=== PATIENT | male | born 1990 ===

== ENCOUNTER 2021-01-06 13:11 | Inpatient (IN) ==
[2021-01-06 13:53] LABS: Basophils % 0.6 %; Eosinophils # 0.1 K/mcL (0.0-0.6); Eosinophils % 0.7 %; Hematocrit 43.8 % (37.5-50.1); Hemoglobin 14.7 g/dL (12.9-16.9); Immature Granulocytes % 0.7 % (0-4); Lymphocytes # 1.7 K/mcL (0.6-4.6); Lymphocytes % 24.2 %; Mean Corpuscular HGB Conc 33.6 g/dL (31.6-35.5); Mean Corpuscular Hemoglobin 29.6 pg (28.0-33.3); Mean Corpuscular Volume 88.3 fL (83.0-100.0); Mean Platelet Volume 11.3 fL (9.4-12.4); Monocytes # 0.5 K/mcL (0.0-1.3); Monocytes % 7.9 %; Neutrophils # 4.5 K/mcL (1.6-8.9); Platelet Count 200 K/mcL (140-400); Red Blood Count 4.96 M/mcL (4.19-5.50); Red Cell Distribution Width 13.7 % (11.5-14.5); Segmented Neutrophils % 65.9 %; White Blood Count 6.9 K/mcL (4.3-11.1)
[2021-01-06 14:09] LABS: Acetaminophen < 10 mcg/mL (10-20); BUN/Creatinine Ratio 20 (6-26); Blood Urea Nitrogen 17 mg/dL (6-20); Calcium 8.8 mg/dL (8.6-10.3); Carbon Dioxide 24 mEq/L (23-29); Chloride 109 mEq/L (98-107); Chol/HDL Ratio 3.5 (0-4.9); Cholesterol 149 mg/dL (< 200); Ethanol < 10 mg/dL (Less than 10); Glucose 130 mg/dL (70-105); HDL Cholesterol 43 mg/dL (40-59); LDL Cholesterol,Calculated 91 mg/dL (< 100); Osmolality,Calculated 291 (280-300); Potassium 3.8 mEq/L (3.5-5.1); Salicylate < 2.5 mg/dL (15.0-30.0); Sodium 139 mEq/L (136-145); Triglycerides 73 mg/dL (< 150); eGFR For African Americans > 60 (> 60); eGFR For Non-African Americans > 60 (> 60)
[2021-01-06 14:29] LABS: Estimated Average Glucose 111 mg/dl; Hemoglobin A1C 5.5 %
[2021-01-06 14:52] LABS: Bilirubin,Urine Negative (Negative); Blood,Urine Negative (Negative); Clarity,Urine Clear (Clear); Color,Urine Yellow (Yellow); Glucose,Urine (UA) Normal (Normal); Ketones,Urine Negative (Negative); Leukocyte Esterase,Urine Negative (Negative); Nitrite,Urine Negative (Negative); Protein,Urine Trace mg/dL (Neg-Trace); Specific Gravity,Urine > 1.030 (1.010-1.025); Urobilinogen,Urine Normal (Normal)
[2021-01-06 16:07] LABS: Amphetamine Screen,Urine Negative ng/mL (Cutoff=1000); Barbiturate Screen,Urine Negative ng/mL (Cutoff=200)
[2021-01-06 16:08] LABS: Benzodiazepines Screen,Urine Negative ng/mL (Cutoff=300)
[2021-01-06 16:09] LABS: Cannabinoid Screen,Urine Positive ng/mL (Cutoff = 50); Cocaine Screen,Urine Negative ng/mL (Cutoff= 300); Opiate Screen,Urine Negative ng/mL (Cutoff=300); Phencyclidine Screen,Urine Negative ng/mL (Cutoff=25)
[2021-01-06] MEDS ORDERED: haloperidoL 5 MG TABLET PO PRN (17:22)
[2021-01-06] MEDS ORDERED: Acetaminophen 325 MG TABLET PO PRN (17:22)
[2021-01-06] MEDS ORDERED: Haloperidol Lactate 5 MG/ML VIAL IM PRN (17:22)
[2021-01-06] MEDS ORDERED: *HR* LORazepam 2 MG/ML VIAL IM PRN (17:22)
[2021-01-06] MEDS ORDERED: MOM Conc 10 ML UD.LIQ PO PRN (17:22)
[2021-01-06] MEDS ORDERED: *HR* LORazepam 1 MG TABLET PO PRN (17:22)
[2021-01-06] MEDS ORDERED: Mag Hydrox/Al Hydrox/Simeth 30 ML UDC PO PRN (17:22)
[2021-01-06] MEDS: traZODone 50 MG TABLET PO PRN (20:14)
[2021-01-06] MEDS: hydrOXYzine pamoate 25 MG CAPSULE PO PRN (20:14)
[2021-01-06] MEDS: Nicotine 7 MG PATCH.TD24 TD SCH (20:56)
[2021-01-07] MEDS: Nicotine 7 MG PATCH.TD24 TD SCH (08:57)
[2021-01-08] MEDS: Nicotine 7 MG PATCH.TD24 TD SCH (10:09)
[2021-01-08] MEDS: hydrOXYzine pamoate 25 MG CAPSULE PO PRN ×2 (11:18→20:49)
[2021-01-08] MEDS: traZODone 50 MG TABLET PO PRN (20:49)
[2021-01-09 08:52] VITALS: BP 141/92
[2021-01-09] MEDS: Nicotine 7 MG PATCH.TD24 TD SCH (09:25)
[2021-01-09] MEDS: hydrOXYzine pamoate 25 MG CAPSULE PO PRN ×2 (09:47→14:27)
== END 2021-01-09 18:10 | disposition home or self-care (01) | DRG 605 ==
LOC: EMEROOARM 13:11 → 1ANU 16:59
PROVIDERS: ADMIT Psychiatry & Neurology Psychiatry; ATTEND Psychiatry & Neurology Psychiatry